=== PATIENT | female | born 1980 | race Caucasian/White ===

== ENCOUNTER → 2022-11-12 | Outpatient (CLI) | payer OTHER ==
[2022-11-12 12:22] LABS: BASO # 0.1 10*3/uL (0.0-0.1); BASO % 0.9 % (0.0-1.0); EOS # 0.2 10*3/uL (0.0-0.4); EOS % 2.2 % (1.0-4.0); LYMPH # 1.6 10*3/uL (1.3-4.4); LYMPH % 21.1 % (27.0-41.0); MEAN CELL VOLUME 83.8 fl (81.0-99.0); MEAN CORPUSCULAR HGB 27.9 pg (27.0-31.0); MEAN CORPUSCULAR HGB CONC 33.3 g/dl (33.0-37.0); MEAN PLATELET VOLUME 9.8 fl (9.6-12.3); MONO # 0.7 10*3/uL (0.1-1.0); MONO % 8.5 % (3.0-9.0); NEUT # 5.2 10*3/uL (2.3-7.9); PLATELET COUNT AUTOMATED 356 10*3/uL (130-400); RED BLOOD COUNT 5.01 10*6/uL (4.10-5.10); RED CELL DISTRI WIDTH 12.6 % (0-14.5); WHITE BLOOD COUNT 7.7 10*3/uL (4.8-10.8)
[2022-11-12 12:24] LABS: BILIRUBIN Negative (Negative); BLOOD Negative (Negative); CLARITY Clear (Clear); COLOR Yellow (Yellow); GLUCOSE Negative (Negative); KETONE Negative (Negative); LEUKO ESTERASE Trace (Negative); NITRITE Negative (Negative); SPECIFIC GRAVITY 1.015 (1.001-1.030); UROBILINOGEN 0.2 E.U./dl (0.0-1.0)
[2022-11-12 12:39] LABS: ALKALINE PHOSPHATASE 68 U/L (46-116); BUN 11 mg/dl (9-23); CHLORIDE 104 mmol/L (98-107); CHOLESTEROL 229 mg/dL (<200); GAMMA GLUTAMYL TRANSPEPTIDASE 18 U/L (0-73); LDL CHOLESTEROL 161 mg/dL (9-159); POTASSIUM 4.2 mmol/L (3.4-5.1); SGPT/ALT 18 U/L (10-49); THYROID STIM HORMONE (HS) 1.965 uIU/ml (0.550-4.780); TOTAL PROTEIN 7.8 gm/dL (6.0-8.0); TRIGLYCERIDES 110 mg/dl (<150)
[2022-11-12 13:31] LABS: VITAMIN D, 25-HYDROXY 24.5 ng/mL (30-100)
[2022-11-12 13:42] LABS: BACTERIA 2+
== END | disposition home or self-care (01) ==
LOC: LAB 11:27
PROVIDERS: ATTEND Family Medicine
DX: E78.5 Hyperlipidemia, unspecified (principal); E55.9 Vitamin D deficiency, unspecified; R79.89 Other specified abnormal findings of blood chemistry; R74.8 Abnormal levels of other serum enzymes; R53.83 Other fatigue